=== PATIENT | female | born 1955 | race African-American/Black ===

== ENCOUNTER 2018-11-11 14:30 | Emergency (ER) | payer OTHER, BC ==
[~2018-11-11] VITALS: Ht 160 cm; Wt 71.8 kg
[~2018-11-11 14:30] MED LIST: ALLERGY RELF10 M1 PO; AMITIZA24 MCG PO; ARIMIDEX1 MG PO; ASPIRIN EC325 MG PO; ATENOLOL50 MG PO; AUGMENTIN500TAB PO; BENZONATATE200 MG PO; BONIVA150 MG OR; CALCIUM + D PO; CALTRATE 600 OR; CELEBREX200 MG OR; CIPROFLOXACN250 MG PO; CRESTOR10 MG PO; CYMBALTA30 MG PO; CYMBALTA60 MG PO; DOC-Q-LAX1 TAB PO; EDARBI40 MG PO; ESTROVE1 PO; FIORICET PO; FLONASE NASAL50 MCG; HYDROCO/APAP1 TA9 PO; LINZESS145 MCG PO; Levaquin PO; MELOXICAM7.5 MG PO; MULTI VIT PO; NAPROSYN250 MG PO; NAPROSYN500 MG PO; NIFEDIPINE30 MG PO; PAXIL30 MG PO; PRAVACHOL20 MG PO; PREVACID30 M1 PO; PROAIR HFA IN; SINGULAIR10 MG PO; TIZANIDINE4 MG PO; TYLENOL PM OR; VIT E D-ALP1000 UNIT PO; ZPAK PO; ZYRTEC-D AL1 PO; ZYRTEC10 MG PO; [UNRECOGNIZED DRUG - OTHER] PO
[2018-11-11] MEDS ORDERED: ANASTROZOLE1 MG PO (15:25)
[2018-11-11] MEDS ORDERED: ATORVASTATIN CA10 MG PO (15:26)
[2018-11-11] MEDS ORDERED: DULOXETINE HCL60 MG PO (15:26)
[2018-11-11] MEDS ORDERED: ATENOLOL50 MG PO (15:26)
[2018-11-11 16:08] VITALS: BP 170/84
== END 2018-11-11 16:08 | disposition home or self-care (01) | DRG 605 ==
LOC: ED 14:30
DX: S30.0XXA Contusion of lower back and pelvis, initial encounter (principal); S39.82XA Other specified injuries of lower back, initial encounter; W07.XXXA Fall from chair, initial encounter; Y92.219 Unspecified school as the place of occurrence of the external cause

== ENCOUNTER 2018-12-19 10:05 | Day surgery (SDC) | payer BC ==
[~2018-12-19 10:05] MED LIST changes: +ANASTROZOLE1 MG PO; +ATORVASTATIN CA10 MG PO; +CENTRUM SILVER1 TA1 PO; +DULOXETINE HCL60 MG PO; +FLONASE AL50 MCG/ACT; +MELOXICAM15 MG PO; +ZANTAC150 M1 PO
[2018-12-19 14:14] VITALS: BP 170/79
== END 2018-12-19 14:00 | disposition home or self-care (01) | DRG 394 ==
LOC: ENDO 10:05
PROVIDERS: ATTEND Internal Medicine Gastroenterology
PROC: 0DBM8ZX Excision of Descending Colon, Via Natural or Artificial Opening Endoscopic, Diagnostic (ICD-10-PCS; principal; 2018-12-19)
PROC: 0DBN8ZX Excision of Sigmoid Colon, Via Natural or Artificial Opening Endoscopic, Diagnostic (ICD-10-PCS; 2018-12-19)
PROC: 0DB48ZX Excision of Esophagogastric Junction, Via Natural or Artificial Opening Endoscopic, Diagnostic (ICD-10-PCS; 2018-12-19)
PROC: 0DB78ZX Excision of Stomach, Pylorus, Via Natural or Artificial Opening Endoscopic, Diagnostic (ICD-10-PCS; 2018-12-19)
DX: K63.5 Polyp of colon (principal); K64.4 Residual hemorrhoidal skin tags; K64.8 Other hemorrhoids; K59.00 Constipation, unspecified; K21.9 Gastro-esophageal reflux disease without esophagitis; Q39.8 Other congenital malformations of esophagus; K29.70 Gastritis, unspecified, without bleeding; K44.9 Diaphragmatic hernia without obstruction or gangrene; I10 Essential (primary) hypertension; E03.9 Hypothyroidism, unspecified; Z79.899 Other long term (current) drug therapy; Z86.010 Personal history of colon polyps

== ENCOUNTER 2020-07-04 17:14 | Emergency (ER) | payer SELFPAY | END 2020-07-04 19:15 | disposition left against medical advice (07) | DRG 951 | LOC: ED 17:14 → LWOBS 18:09 | DX: Z91.19 Patient's noncompliance with other medical treatment and regimen (principal) ==

== ENCOUNTER 2021-03-18 15:54 | Emergency (ER) | payer OTHER ==
[~2021-03-18] VITALS: Ht 160 cm; Wt 72.7 kg
[2021-03-18] MEDS ORDERED: FAMOTIDINE20 M1 PO (16:13)
[2021-03-18 17:05] LABS: HEMATOCRIT 41.8 % (37.0-47.0); HEMOGLOBIN 13.2 g/dl (12.0-16.0); IMMATURE GRANULOCYTES 0.2 % (0.0-5.0); MEAN CELL VOLUME 92.7 fL CALC (80.0-100.0); MEAN CORPUSCULAR HGB 29.3 pG CALC (26.0-32.0); MEAN CORPUSCULAR HGB CONC 31.6 g/dL CAL (32.0-36.0); NEUT# 2.39 thou/uL (2.00-7.15); RED BLOOD COUNT 4.51 mill/uL (4.20-5.60); RED CELL DISTRI WIDTH 12.8 % (11.5-15.5)
[2021-03-18 17:20] LABS: ALBUMIN 3.9 g/dL (3.2-5.0); ALKALINE PHOSPHATASE 50 u/l (38-126); ANION GAP 12 (6-22 (CALC)); BILIRUBIN, TOTAL 0.2 mg/dL (0.0-1.4); BUN 15 mg/dL (8-23); BUN/CREATININE RATIO 20 (12-20 (CALC)); CARBON DIOXIDE 24 mmol/l (22-30); CHLORIDE 105 mmol/l (95-108); CREATININE 0.8 mg/dL (0.5-1.0); GFR > 60 ML/MIN (>=60 (CALC)); GFR FOR AFR.AMER. > 60 ML/MIN (>=60 (CALC)); SGOT/AST 28 u/l (9-36); SODIUM 137 mmol/l (137-146); TOTAL PROTEIN 7.3 g/dL (6.3-8.2)
[2021-03-18 17:46] LABS: URINE BILIRUBIN - DIPSTICK NEGATIVE (NEGATIVE); URINE BLOOD DIPSTICK NEGATIVE (NEGATIVE); URINE COLOR YELLOW; URINE GLUCOSE - DIPSTICK NEGATIVE (NEGATIVE); URINE KETONE NEGATIVE (NEGATIVE); URINE LEUK ESTERASE NEGATIVE (NEGATIVE); URINE PROTEIN - DIPSTICK NEGATIVE (NEG-TRACE); URINE UROBILINOGEN - DIPSTICK 0.2 E.U./dL (0.2)
[2021-03-18 17:47] LABS: URINE NITRITE - DIPSTICK NEGATIVE (Negative)
[2021-03-18 18:25] VITALS: BP 177/77
[2021-03-18] MEDS ORDERED: LOPRESSOR25 M1 PO (18:27)
== END 2021-03-18 18:46 | disposition home or self-care (01) | DRG 305 ==
LOC: ED 15:54
DX: I10 Essential (primary) hypertension (principal)